=== PATIENT | male | born 1960 | race Caucasian/White ===

== ENCOUNTER → 2016-06-06 | Outpatient (CLI) | payer BC ==
--- NOTE | 2016-06-06 11:00 | US ---
Complete Abdominal Sonography Clinical History: 56-year-old male with right upper quadrant pain. ICD-10 Diagnostic Code: R10.11. Technique: A curvilinear 5 MHz transducer was used to sonographically evaluate the upper abdomen. Col or Doppler was also used. Cine clips were acquired through the gallbladder. Comparison Study: None. Findings: There is increased echogenicity associated with the visualized portions of the pancreas, co nsistent with fatty infiltration. The pancreatic tail is partially obscured by overlying bowel gas. T he abdominal aorta is normal in size and tapers normally, and can be seen to the level of the common iliac arteries. The visualized IVC is normal in caliber. The hepatic vein trifurcation is normal. The main portal vein is patent. There is no ascites or pleural effusion. The liver is normal in size, me asuring 17.1 cm along the right midaxillary line. There is no focal hepatic mass. There is no intrahe patic or extrahepatic bile duct dilatation. The common bile duct measures 3.7 mm. The gallbladder is moderately distended, and there are several nonmobile nonshadowing adherent echogenic foci, the large st measuring 7 x 4 x 7 mm, consistent with polyps. A couple of smaller polyps measure 4 x 3 x 4 mm an d 4 x 4 x 5 mm. According to the [employer], polyps in the 7-9 mm range should be followed annually with ultrasound, with surgical consultation to be considered if the polyp(s) grow. The lack of any mobility or acoustic shadowing would militate against gallstones. There is no mobile sludge. There is no pericholecystic fluid, sonographic Marks sign, or abnormal wall thickening. The wall measures 2.2 mm. The kidneys are normal in size, shape, and position, with no focal renal mass o r hydronephrosis. The right kidney measures 10.5 x 5.6 x 5.5 cm,with a renal cortical thickness of 1. 6 cm. The left kidney measures 11.9 x 5.5 x 5.9 cm,with a normal renal cortical thickness. There appe ars to be a small benign-variant column of Abisai along the mid pole. The renal cortical thickness is 2.0 cm. The spleen is normal, measuring 8.6 x 8.9 x 5.0 cm. Impression: 1. Mild fatty infiltration of the pancreas. 2. Normal appearance of the liver, with no bile duct dilatation. 3. Suspected gallbladder polyps, measuring up to 7 mm in diameter. Annual surveillance sonography is recommended. There is no cholelithiasis or cholecystitis.
== END ==
LOC: FIMAGING 09:21
PROVIDERS: ATTEND Family Medicine
DX: R10.11 Right upper quadrant pain (principal); K86.89 Other specified diseases of pancreas

== ENCOUNTER 2016-06-17 19:25 | Inpatient (IN) | payer BC ==
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
[2016-06-17] MEDS ORDERED: LORazepam 2 MG/ML INJ ONE (20:41)
[2016-06-17] MEDS ORDERED: *PHM DO NOT USE-LORazepam 1 MG/ML IV NEWBORN SYR IV ONE (20:43)
--- NOTE | 2016-06-17 22:27 | MR ---
MRI Cervical Spine (Without Contrast) Indication: Unable to move left arm. History of cervical spine stenosis. Technique: Sagittal T1, T2, and axial T2, 3D gradient echo MR sequences of the cervical spine, witho ut contrast. Additionally, coronal T2 FSE sequence was obtained. Comparison: MRI cervical spine dated February 20, 2015. Findings: The axial imaging is suboptimal due to motion artifact. The C4-C5 through C7-T1 levels ar e partially obscured despite repeating several of the sequences. The cervical spine has mild levocurvature, apex at C6. Alignment is normal on the sagittal sequence. No listhesis. Diskogenic Modic changes at the C5-C6 and C6-C7 levels have increased since 2014. N o fracture or bone marrow-replacing lesion. The paraspinal soft tissues are normal. The posterior f francisca and cervicooccipital junction are normal. The spinal cord has normal caliber and signal. No sy rinx or gliosis. No neck mass or Pancoast tumor on the coronal T2 sequence. C2-C3: Widely patent central canal and neural foramina. Disk desiccation, unchanged. C3-C4: Mild right neural foraminal narrowing due to asymmetric facet hypertrophy is unchanged. The central canal and left neural foramen are widely patent. C4-C5: Mild left and mild to moderate right neural foraminal narrowing due to facet hypertrophy and a broad-based disk bulge are unchanged. Mild central canal narrowing is unchanged. C5-C6: A diffuse broad-based disk bulge/osteophyte disk complex results in moderate unchanged centra l canal narrowing and severe bilateral neural foraminal narrowing, worse left than right. C6-C7: Moderate to severe central canal narrowing, severe narrowing of the left ventral lateral rece ss, and moderate to severe bilateral neural foraminal narrowing, worse left than right, is grossly un changed since 2014; however, detailed anatomy of the neural foramen is obscured on the axial imaging. Mild compression of the spinal cord, with no cerebrospinal fluid along the ventral or dorsal aspect of the cord, at this level is unchanged. C7-T1: The central canal and neural foramina are widely patent. Disk desiccation, unchanged. Impression: 1. Exam partially compromised by motion artifact and patient's inability to hold still. 2. Severe central canal narrowing at C6-C7 resulting in minimal compression of the spinal cord is un changed since 2014. No atrophy or cord gliosis has developed. 3. Severe bilateral neural foraminal narrowing at C5-C6 and severe bilateral neural foraminal narrow ing at C6-C7, worse off to the left, has not significantly changed since 2015. Comment: The results were called to Dr. Izabella Izquierdo at 10:00 p.m. on June 17, 2016.
[2016-06-17] MEDS ORDERED: ZOLPIDEM TARTRATE 5 MG TAB PO PRN (23:03)
[2016-06-17] MEDS ORDERED: ONDANSETRON DISINTEGRATING 4 MG TAB PO PRN (23:03)
[2016-06-17] MEDS ORDERED: ONDANSETRON 4 MG/2 ML VIAL IVP PRN (23:03)
[2016-06-17] MEDS ORDERED: ACETAMINOPHEN 325 MG TAB PO PRN (23:03)
--- NOTE | 2016-06-18 00:31 | GHP ---
[f rep st] HISTORY AND PHYSICAL DATE OF ADMISSION: 06/17/2016 DATE OF EVALUATION: 06/17/2016 CHIEF COMPLAINT: Left arm pain. Left arm weakness. HISTORY OF PRESENT ILLNESS: This is a 56-year-old male, who has a history of intermittent left arm w eakness and known radiculopathy for the last couple of years. He has been managing this intermittent ly with physical therapy, massage, and chiropractor. Yesterday he shoveled snow in [facility] and had some neck soreness afterwards and this morning he had significant left arm weakness. He also voss s had some numbness. REVIEW OF SYSTEMS: A 10-point review of systems was obtained and was negative. PAST MEDICAL HISTORY: As above. Radiculopathy as above. MEDICATIONS: None. SOCIAL HISTORY: Does smoke. 1-2 drinks of alcohol. FAMILY HISTORY: Reviewed and noncontributory. PHYSICAL EXAMINATION: VITAL SIGNS: Afebrile, blood pressure is 133/84, heart rate 82, oxygenation 9 5% on room air. GENERAL: The patient is well developed and in no apparent distress. HEENT: Nonict abbie sclerae. Extraocular movements intact. Moist mucous membranes. NECK: Supple. No thyromegaly . LUNGS: Good effort. Clear to auscultation bilaterally. CARDIOVASCULAR: Regular rate and rhythm . No murmurs, rubs, or gallops. ABDOMEN: Positive bowel sounds. Soft, nontender, nondistended. N o hepatosplenomegaly. EXTREMITIES: No clubbing, cyanosis, or edema. SKIN: Without rash. Warm and intact. NEUROLOGIC: Alert x3. Does have weakness in his left arm. Cervical MRI shows severe cent ral canal narrowing at C6 and C7 and bilateral neural foramen narrowing at C5-C6, C6-C7 worse on the left. ASSESSMENT: A 56-year-old male with left arm weakness and spinal stenosis. PLAN: Patient will be admitted. Neurosurgery will see the patient in the morning. Would recommend that the patient be transferred to the Neurosurgical Services as the patient has no other medical pro blems. /[id number]/MODL
[2016-06-18] MEDS ORDERED: NS W/ 20 KCl/L 1,000 ML IV SCH ×2 (08:15→17:15)
--- NOTE | 2016-06-18 08:36 | HOSPPROG ---
Hospitalist Progress Note Objective: Vital Signs Temp Pulse Resp BP Pulse Ox 36.4 C 80 20 105/73 91 L 06/18/16 08:10 06/18/16 08:10 06/18/16 08:10 06/18/16 08:10 06/18/16 08:10 06/17/16 06/18/16 06/19/16 05:59 05:59 05:59 Intake Total 300 Balance 300 ICD10 Worksheet Patient Problems: Problems Problem Status Diagnosed Cervical radiculopathy Acute Thyroid mass Acute
--- NOTE | 2016-06-18 11:21 | GCON ---
[f rep st] CONSULTATION NEUROSURGICAL CONSULTATION. CHIEF COMPLAINT: Left arm weakness. HISTORY OF PRESENT ILLNESS: Mr. Haider is a 56-year-old male with a several year history of intermit tent left arm radicular pain and weakness. He was managing this with respiratory care instructor and massage t herapy with some success. He was shoveling snow on 06/16/2016, when he developed a flare-up of neck pain and stiffness. He decided not to go skiing and then subsequently noticed that his left arm was weak. He presented to the emergency department on 06/17/2016 for further evaluation. He com plains of ongoing significant weakness in his left arm. He feels that his neck pain has improved and he is not having any upper extremity radicular pain. He is not having right arm weakness. 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 PAST MEDICAL HISTORY: None. CURRENT MEDICATIONS: None. PAST SURGICAL HISTORY: Includes thyroidectomy. ALLERGIES: No known drug allergies. FAMILY HISTORY: Patient has no family history of spinal issues. SOCIAL HISTORY: Patient is and has children. He drinks approximately 1-2 drinks a day, and has smoked a pack of cigarettes a day for approximately the last 40 years. He denies recreational dr ug use. REVIEW OF SYSTEMS: Negative. PHYSICAL EXAM: GENERAL: Mr. Smart is a 56-year-old male lying in bed, in no apparent distress. HEAD, EYES, EARS, NOSE, AND THROAT: Negative for drainage. EXTREMITIES: [place], warm, and dry. NEUR OLOGICAL: Patient is awake, alert, oriented x4. Pupils equal, round, reactive to light. Extraocula r motions are intact. There is no evidence of facial droop. Tongue and uvula are midline. His catalino r strength is 5/5 in his right arm and both legs. His left arm has approximately 4+ out of 5 strengt h in his left deltoid, 1/5 strength in his left biceps, 3/5 in his left triceps, but has good golf cart assembler st rength and intrinsics. His sensation is grossly intact to light touch in all 4 extremities. Deep te ndon reflexes are 1+ out of 4 in the bilateral biceps, triceps, brachioradialis, 2+ out of 4 in the b ilateral patellar, 1+ out of 4 in the bilateral Achilles. He has a negative Santiago's with no clonu s. DIAGNOSTIC STUDIES: An MRI of the cervical spine from the [facility] PACS system pablo ws moderate multilevel degenerative changes. At C4-5, there is a left-sided foraminal disc herniatio n causing moderate compression of the left C5 nerve root. The C5-6 level has a broad-based disc catrachito iation with moderate to severe bilateral foraminal stenosis. At C6-7, there is a broad-based disc he rniation with severe, left greater than right foraminal stenosis and central canal stenosis. IMPRESSION: This is a 56-year-old male with recent exacerbation of left arm weakness, primarily in h is biceps, triceps and to a lesser degree in his deltoid that is likely related to his multilevel cer vical degenerative joint disease and stenosis. PLAN: All the above was discussed in detail with the patient. This patient was seen by Dr. Myra lambert. It was discussed with Vitaly it is most likely that his left arm weakness is from his mul tilevel cervical stenosis at C5-6, C6-7 and to a lesser degree at C4-5. While it is possible the pat ient could have like a viral plexopathy that can contribute to his numbness, he has a known history o f cervical radiculopathy with intermittent weakness that recently flared after shoveling snow. In li ght of his severe left arm weakness, he would likely require a C5-6, C6-7 and possible C4-5 anterior cervical diskectomy and arthrodesis. The patient understands the risks of surgery include, but are n ot limited to, bleeding, infection, neurologic injury, cerebrospinal fluid leak, major vascular injur y, and the risk of ongoing symptoms. At this point in time, he wants to think about his treatment op tions. We will also consider having Neurology evaluate the patient. This patient was seen by Dr. Doris bella. /[id number]/MODL
[2016-06-18] MEDS ORDERED: BUPIVACAINE/EPI 0.25% 30 ML SDV ONE (12:44)
[2016-06-18] MEDS ORDERED: THROMBIN (RECOMBINANT) 5,000 UNIT VIAL TP ONE (12:44)
[2016-06-18] MEDS ORDERED: BACITRACIN 50,000 UNITS/10 ML SYR IRR ONE (12:44)
[2016-06-18] MEDS ORDERED: ceFAZolin 2 GM/DEXTROSE 100 ML IV ONE (13:30)
[2016-06-18] MEDS ORDERED: MIDAZOLAM 2 MG/2 ML VIAL ONE (13:48)
[2016-06-18] MEDS ORDERED: REMIFENTANIL HCL 1 MG VIAL ONE ×2 (13:48→16:15)
[2016-06-18] MEDS ORDERED: PROPOFOL/EMULSION 500 MG/50 ML BOTTLE IV ONE ×2 (13:48→16:15)
[2016-06-18] MEDS ORDERED: fentaNYL 100 MCG/2 ML INJ ONE ×4 (13:48→17:39)
[2016-06-18] MEDS ORDERED: PROPOFOL 200 MG/20 ML VIAL ONE (13:48)
[2016-06-18] MEDS ORDERED: ROCURONIUM 50 MG/5 ML VIAL ONE (13:50)
[2016-06-18] MEDS ORDERED: SUCCINYLCHOLINE CHLORIDE*ANESTHESIA ONLY*200 MG/10 ML SYR IVP ONE (13:50)
[2016-06-18] MEDS ORDERED: ONDANSETRON 4 MG/2 ML VIAL ONE (13:50)
[2016-06-18] MEDS ORDERED: LIDOCAINE 2% 5 ML SDV ONE (14:01)
[2016-06-18] MEDS ORDERED: DEXAMETHASONE 4 MG/ML VIAL ONE ×3 (14:14)
[2016-06-18] MEDS ORDERED: epHEDrine SULFATE 10 MG/ML SYR ONE (14:44)
[2016-06-18] MEDS ORDERED: D5W IV ONE (16:30)
[2016-06-18] MEDS ORDERED: AMINOCAPROIC ACID IV ONE (16:30)
[2016-06-18] MEDS ORDERED: ceFAZolin 1 GM VIAL ONE (16:50)
[2016-06-18] MEDS ORDERED: DIAZEPAM 10 MG/2 ML SYR ONE (17:10)
[2016-06-18] MEDS ORDERED: BISACODYL 10 MG SUPP PR PRN (17:15)
[2016-06-18] MEDS ORDERED: DIAZEPAM 10 MG/2 ML SYR IVP PRN (17:15)
[2016-06-18] MEDS ORDERED: LACTULOSE 20 GM/30 ML UDCUP PO PRN (17:15)
[2016-06-18] MEDS ORDERED: MAGNESIUM HYDROXIDE 30 ML UDCUP PO PRN (17:15)
[2016-06-18] MEDS ORDERED: DIAZEPAM 5 MG TAB PO PRN (17:15)
[2016-06-18] MEDS ORDERED: MAG HYDROX/AL HYDROX/SIMETH 30 ML UDCUP PO PRN (17:15)
[2016-06-18] MEDS ORDERED: diphenhydrAMINE 25 MG CAP PO PRN (17:15)
[2016-06-18] MEDS ORDERED: OXYCODONE/APAP 5/325 TAB PO PRN (17:15)
--- NOTE | 2016-06-18 17:15 | POSTOPPROG ---
Post Op Note Date of Operation: 06/18/16 Surgeon: Elijah Hidalgo Supervisor Wrapping Room: robin Anesthesiologist: Solange Anesthesia: GET(General Endotracheal) Pre-op Diagnosis: cervical spondylitic myelopathy Post-op Diagnosis: same Indication: loss of motor function Procedure: C4-7 ACDF Findings: stenosis Inf/Abcess present in the surg proc area at time of surgery?: No EBL: 50-100 Drains: Damir Mcmahon (to bulb suction)
--- NOTE | 2016-06-18 17:29 | NEUSURGPN ---
Date of Surgery: 06/18/16 Post Op Day: 0 Assessment/Plan: status post C4-7ACDF Neuro stable with ongoing left arm weakness Plan: Hard collar at all times CHAITANYA to bulb suction transfer to floor per protocol in PACU. Subjective: groggy, but opens eyes to voice. comfortable Objective: Vitals: BP 140/91 HR 99 O2: 99% Neuro: PERRLA,EOMI [place], weak in left arm. 0/5 left biceps, 0/5 deltoid, 2/5 triceps. 4/5 systems checkout mechanic, 4/5 wrist flexor, 3/5 wrist extensor follows commands intermittently with arms. sens +LT Urinary Catheter in Place: Yes Urinary Catheter Indication: Surgical Requirement Neurosurgery Physical Exam - Vitals, I&O, Labs I and O 06/17/16 06/18/16 06/19/16 05:59 05:59 05:59 Intake Total 300 Balance 300 Weight 72.8 kg Intake: Oral (ml) 300 Other: Number of Voids Toilet 1 Vital Signs Temp Pulse Resp BP Pulse Ox 36.4 C 80 20 105/73 91 L 06/18/16 08:10 06/18/16 08:10 06/18/16 08:10 06/18/16 08:10 06/18/16 08:10 ICD10 Worksheet Patient Problems: Problems Problem Status Diagnosed Cervical radiculopathy Acute Thyroid mass Acute
[2016-06-18] MEDS ORDERED: MEPERIDINE 25 MG/ML SYR ONE (17:31)
--- NOTE | 2016-06-18 17:43 | GOP ---
[f rep st] OPERATIVE REPORT DATE OF OPERATION: 06/18/2016 SURGEON: Elijah Hidalgo MD PRECISION DYER: MERRY Andrea ANESTHESIA: General endotracheal. PREOPERATIVE DIAGNOSIS: Multilevel cervical spondylitic myelopathy with critical neural foraminal stenosis at C5, C6, and C7 on the left. Profound left C5, C6, and partial C7 weakness/radiculopathy. Failed conservative care. POSTOPERATIVE DIAGNOSIS: Multilevel cervical spondylitic myelopathy with critical neural foraminal stenosis at C5, C6, and C7 on the left. Profound left C5, C6, and partial C7 weakness/radiculopathy. Failed conservative care. PROCEDURE PERFORMED: Complete C4-5, C5-6, and C6-7 anterior cervical diskectomy and partial C5 and C6 vertebral corpectomies with C4-5, C5-6, and C6- 7 arthrodesis using 12 mm lordotically fashion structural PEEK interbody spacers and local autograft at each level. Placement of a 73 mm LnK CastleLoc- P anterior cervical plate from C4 through C7. Use of intraoperative microscopy and fluoroscopy. FINDINGS: ESTIMATED BLOOD LOSS: 100 cc. INDICATIONS: The patient is a 56-year-old man who has a long-standing history of cervical degenerative disk disease and central canal neural foraminal stenosis and radiculopathies and myelopathy who has been recommended surgery over the years and refused. He presented to the emergency room yesterday with severe, progressive, and profound left upper extremity C5, C6, and partial C7 weakness. He presents now for a multilevel cervical decompression and stabilization with plating. Note that the patient's presentation was somewhat atypical with the sudden profound painless weakness in his arm and, as a result, I consulted Dr. Jesus Foy from Neurology for a second opinion, and he agreed that this was the problem , and the need for urgent surgical intervention. I also reviewed the case with Dr. Wicho Vazquez, who also agreed. DESCRIPTION OF PROCEDURE: After informed consent was obtained, the patient was taken to the operating room and placed in the supine position with the head in the halter retractor system. The anterior cervical region was prepped and draped in A sterile fashion. After fluoroscopic localization of the correct level, the subcutaneous and intramuscular tissues were infiltrated with local anesthesia. A horizontal linear incision was then created at the level of the C5-6 interspace. This was carried through the platysmal layer using the monopolar electrocautery and carried in the avascular plane between the sternocleidomastoid and carotid sheath laterally and the strap muscles, trachea , and esophagus medially, down to the prevertebral fascia, which was carefully incised with Metzenbaum scissors. The C4-5, C5-6, and C6-7 interspaces were identified and re-verified using intraoperative fluoroscopy. The osteophytes were carefully removed and harvested for local autograft. Serial distraction was then placed across the interspaces first at C4-5, then at C5-6, then at C6- 7 with the [place] pins, during which time complete diskectomies were performed with preparation of the endplates and removal of the posterior longitudinal ligament, along with the posteriorly protruding osteophytes. Bilateral foraminotomies were performed. It was necessary to drill quite extensively into the vertebral bodies in order to adequately decompress the central canal and neural foramina, especially on the left. This amounted to approximately 50 % of the C5 and C6 vertebral bodies due to drilling from above and below these levels with C4-5, C5-6, and C6-7 decompressions for partial C5 and C6 vertebral corpectomies. Following adequate decompression, meticulous hemostasis was achieved as best we could with copious irrigation and Gelfoam soaked in thrombin , which was then removed. Note that the patient did take Aleve a couple of days ago prior to surgery, and because of this, we gave him Amicar and DDAVP to control the bleeding, but he was somewhat oozy. We did spend quite a bit of time controlling bleeding, especially with the partial vertebral corpectomies. Following adequate decompression, and meticulous hemostasis as best we could, each of the interspaces were placed with 12 mm lordotically fashioned structural PEEK interbody spacers packed with local autograft in the center from the osteophytectomies/partial corpectomies. This was performed under fluoroscopic image guidance. The distraction was removed, and an appropriately sized 73 mm CastleLoc-P LnK anterior cervical plate was then placed and secured from C4 through C7 with self-drilling screws. This was also performed under fluoroscopic image guidance. Following re-verification of good positioning of the plate screws and interbody spacers using biplanar fluoroscopy, a drain was placed. The subcutaneous and intramuscular tissues were re-infiltrated with local anesthesia. Intervertebral joints were gently packed with the residual local autograft, and the wound was closed in a layered fashion using interrupted Vicryl sutures, followed by Steri-Strips on the skin. Intraoperative neurophysiologic monitoring with somatosensory evoked potentials and motor evoked potentials were stable throughout the case. COMPLICATIONS: None. DISPOSITION: The patient is currently in the process of being repositioned for extubation. /[id number]/MODL MTDD
[2016-06-18 17:51] VITALS: RESP 16
--- NOTE | 2016-06-18 18:27 | DX ---
Intraoperative fluoroscopy. History: Cervical spine surgery. Discussion: 14.5 seconds of intraoperative fluoroscopy utilized by Dr. Juwan Hidalgo during cer vical spine surgery. Lateral matrix radiograph obtained during the procedure demonstrates features of diskectomy and inter body fusion with anterior plating from C4 through C7 with anatomic alignment. Impression: 1. Intraoperative fluoroscopy during cervical spine surgery.
[2016-06-18] MEDS: morphINE SR 15 MG TAB PO SCH (19:44)
[2016-06-18] MEDS: HYDROCODONE/APAP 10/325 TAB PO PRN ×2 (19:44→22:01)
[2016-06-18] MEDS: SENNOSIDES/DOCUSATE SODIUM TAB PO SCH (19:47)
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
[2016-06-18] MEDS ORDERED: FAMOTIDINE 20 MG/NACL 50 ML IV SCH (21:00)
[2016-06-18] MEDS: ceFAZolin 2 GM in D5W 100 ML IV SCH (22:01)
[2016-06-18] MEDS: POLYETHYLENE GLYCOL 3350 17 GM PKT PO SCH (22:04)
[2016-06-19] MEDS: ceFAZolin 2 GM in D5W 100 ML IV SCH (05:39)
[2016-06-19 05:43] LABS: % IMMATURE GRANULYOCYTES 0.4 % (0.0-1.1); ABSOLUTE IMMATURE GRANULOCYTES 0.04 10^3/uL (0.00-0.10); ADD DIFF? NO; ADD MORPH? NO; ADD SCAN? NO; ATYPICAL LYMPHOCYTE FLAG 0 (0-99); FRAGMENT RBC FLAG 0 (0-99); HEMATOCRIT 38.4 % (40.0-51.0); HEMOGLOBIN 13.2 g/dL (13.7-17.5); LEFT SHIFT FLG 0 (0-99); LIPEMIA HEMOLYSIS FLAG 90 (0-99); MEAN CELL HEMOGLOBIN 31.7 pg (27.9-34.1); MEAN CELL HEMOGLOBIN CONCENTR. 34.4 g/dL (32.4-36.7); MEAN CELL VOLUME 92.1 fL (81.5-99.8); PLATELET CLUMPS FLAG 0 (0-99); PLATELET COUNT 221 10^3/uL (150-400); RED BLOOD CELL COUNT 4.17 10^6/uL (4.40-6.38); RED CELL DISTRIBUTION WIDTH 12.3 % (11.5-15.2)
[2016-06-19 06:06] LABS: ANION GAP 10 mEq/L (8-16); CALCIUM 8.2 mg/dL (8.5-10.4); CARBON DIOXIDE 24 mEq/l (22-31); CHLORIDE 104 mEq/L (97-110); CREATININE 0.7 mg/dL (0.7-1.3); GLOMERULAR FILTRATION RATE > 60; GLUCOSE 145 mg/dL (70-100); POTASSIUM 4.5 mEq/L (3.5-5.2); SODIUM 138 mEq/L (134-144)
--- NOTE | 2016-06-19 07:09 | SOAPPROG ---
SOAP Progress Note Assessment/Plan: Assessment: 56 yo M POD #1 C4/5, 5/6, 6/7 ACDF Plan: stable and doing well overall cervical x-rays today PT/OT/ST work on dc home today likely keep CHAITANYA and go home with it scd/kwaku for dvt prophylaxis please call with neuro changes discussed with DR Myers 06/19/16 07:06 Subjective: + neck pain, no arm pain, left arm still weak. Objective: Vital Signs Temp Pulse Resp BP Pulse Ox 36.4 C 86 16 121/70 H 95 06/18/16 23:50 06/18/16 23:50 06/18/16 23:50 06/18/16 23:50 06/18/16 23:50 Laboratory Results 06/19/16 04:57 06/19/16 04:57 06/18/16 06/19/16 06/20/16 05:59 05:59 05:59 Intake Total 300 4300 Output Total 1165 60 Balance 300 3135 -60 AAOx4, +FC PERRL, EOMI, no facial droop 5/5 except left deltoid 2/5, biceps 1/5, triceps 3/5 + light touch C/D/I ICD10 Worksheet Patient Problems: Problems Problem Status Diagnosed Cervical radiculopathy Acute Thyroid mass Acute
[2016-06-19] MEDS: HYDROCODONE/APAP 10/325 TAB PO PRN ×3 (07:56→17:40)
[2016-06-19] MEDS: SENNOSIDES/DOCUSATE SODIUM TAB PO SCH (08:35)
[2016-06-19] MEDS: morphINE SR 15 MG TAB PO SCH (08:38)
[2016-06-19] MEDS ORDERED: FAMOTIDINE 20 MG TAB PO SCH (09:00)
[2016-06-19] MEDS: POLYETHYLENE GLYCOL 3350 17 GM PKT PO SCH (10:11)
--- NOTE | 2016-06-19 10:39 | DX ---
Cervical Spine, Two Views. History: Follow-up cervical fusion. Comparison: MRI May 2016. Findings: Postsurgical changes are seen of anterior fusion of C4-C7 with an anterior fixation plate a nd vertebral body screws. Interbody bone graft is seen in place in good position. No significant spon dylolisthesis. No evidence for hardware complication. Single drain is seen anteriorly. No significant prevertebral soft tissue swelling. Impression: Postsurgical changes of fusion cervical spine C4-C7 with good alignment and appearance.
[2016-06-19 12:47] VITALS: BP 136/85; PULSE 89; TEMP 97.5; O2SAT 98
[2016-06-19] MEDS: METHOCARBAMOL 750 MG TAB PO PRN ×2 (13:52→17:40)
--- NOTE | 2016-06-19 16:07 | NEUROPROG ---
Assessment: 1. Left cervical radiculopathy the patient is POD #1 from his neurosurgical procedure ( please see operative notes for details) on exam, his left triceps has improved and is now 5/5. his left biceps may have slightly improved. His left deltoid remains profoundly weak. No further recommendations from a neurologic standpoint. We will sign off and follow up p.r.n.. Please do not hesitate to call if there is any further neurologic change with this very pleasant patient. Subjective: Doing well, postop day 1 Objective: Vital Signs Temp Pulse Resp BP Pulse Ox 36.4 C 89 16 136/85 H 98 06/19/16 12:42 06/19/16 12:42 06/19/16 12:42 06/19/16 12:42 06/19/16 12:42 Laboratory Results 06/19/16 04:57 06/19/16 04:57 06/18/16 06/19/16 06/20/16 05:59 05:59 05:59 Intake Total 4300 620 Output Total 1165 80 Balance 3135 540 see above, regarding neurologic exam left triceps definitely improved in power testing Allergies/Adverse Reactions: No Known Allergies Allergy (Verified 08/29/13 20:45)
[2016-06-20] MEDS ORDERED: ENOXAPARIN 40 MG/0.4 ML SYR SC SCH (09:00)
== END 2016-06-19 18:01 | disposition home or self-care (01) | DRG 473 ==
LOC: F2W 23:11 → OBSVTOIN 06-18 17:15
PROVIDERS: ADMIT Internal Medicine; ATTEND Internal Medicine
PROC: 8E0WXBZ Computer Assisted Procedure of Trunk Region (ICD-10-PCS; principal; 2016-06-18 16:00)
PROC: 0RG20A0 Fusion of 2 or more Cervical Vertebral Joints with Interbody Fusion Device, Anterior Approach, Anterior Column, Open Approach (ICD-10-PCS; principal; 2016-06-18 16:00)
PROC: 00NW3ZZ Release Cervical Spinal Cord, Percutaneous Approach (ICD-10-PCS; principal; 2016-06-18 16:00)
PROC: 4A1004G Monitoring of Central Nervous Electrical Activity, Intraoperative, Open Approach (ICD-10-PCS; principal; 2016-06-18 16:00)
DX: M47.12 Other spondylosis with myelopathy, cervical region (principal); M47.22 Other spondylosis with radiculopathy, cervical region; E89.0 Postprocedural hypothyroidism; Z72.0 Tobacco use
CPT/HCPCS: 92610-GN; 96374; 97161-GP; 97165-GO; C1713; G0378; G8978-GP-CH; G8979-GP-CH; G8980-GP-CH; G8987-GO-CJ; G8988-GO-CI; J0330; J0690; J1100; J2250; J2405; J2704; J3010

== ENCOUNTER → 2016-09-12 | Outpatient (CLI) | payer BC | LOC: FIMAGING 08:31 | PROVIDERS: ATTEND Physician Assistant Surgical | DX: Z09 Encounter for follow-up examination after completed treatment for conditions other than malignant neoplasm (principal); Z98.1 Arthrodesis status ==

== ENCOUNTER → 2016-12-15 | Outpatient (CLI) | payer BC | LOC: FIMAGING 08:03 → EDSTATUS 08:04 | PROVIDERS: ATTEND Physician Assistant Surgical | DX: Z09 Encounter for follow-up examination after completed treatment for conditions other than malignant neoplasm (principal); Z98.1 Arthrodesis status ==

== ENCOUNTER → 2017-03-02 | Outpatient (CLI) | payer BC | LOC: FIMAGING 08:46 | PROVIDERS: ATTEND Physician Assistant Surgical | DX: Z09 Encounter for follow-up examination after completed treatment for conditions other than malignant neoplasm (principal); Z98.1 Arthrodesis status ==

== ENCOUNTER → 2017-06-22 | Outpatient (CLI) | payer BC | LOC: FIMAGING 08:12 | PROVIDERS: ATTEND Physician Assistant Surgical | DX: Z09 Encounter for follow-up examination after completed treatment for conditions other than malignant neoplasm (principal); Z98.1 Arthrodesis status ==

== ENCOUNTER → 2018-01-14 | Outpatient (CLI) | payer BC | LOC: FIMAGING 09:46 | PROVIDERS: ATTEND Physician Assistant Surgical | DX: Z98.1 Arthrodesis status (principal); M43.12 Spondylolisthesis, cervical region ==

== ENCOUNTER → 2018-02-01 | Outpatient (CLI) | payer BC | LOC: FIMAGING 17:27 | PROVIDERS: ATTEND Family Medicine | DX: J40 Bronchitis, not specified as acute or chronic (principal) ==

== ENCOUNTER → 2018-07-09 | Outpatient (CLI) | payer BC | LOC: FIMAGING 09:10 | PROVIDERS: ATTEND Family Medicine | DX: M50.31 Other cervical disc degeneration, high cervical region (principal) ==